=== PATIENT | female | born 1955 | race Caucasian/White ===

== ENCOUNTER 2019-01-21 14:08 | Inpatient (IN) | payer OTHER ==
[~2019-01-21] VITALS: Ht 165.1 cm; Wt 102.2 kg
[~2019-01-21 14:08] MED LIST: ALPR0.25 PO; ASPI-817 PO; FLUT16SP17 NASAL; HYDR12.58 PO; IBUP-1542 PO; LEVO25TA6 PO; LOSA100T15 PO; OMEP20CA17 PO; TRAM50TA PO; [UNRECOGNIZED DRUG - OTHER] PO
[2019-01-21] MEDS ORDERED: ONDANSETRON 4 MG INJ IV STA (18:01)
[2019-01-21] MEDS ORDERED: SOD CHLORIDE 0.9% 1,000 ML IV STA (18:01)
[2019-01-21] MEDS ORDERED: morphine 4 MG/ML VIAL IV STA (18:01)
[2019-01-21] MEDS ORDERED: ACETAMINOPHEN 325 MG TAB PO PRN (19:00)
[2019-01-21] MEDS ORDERED: ONDANSETRON 4 MG INJ IV PRN (19:00)
[2019-01-21] MEDS: DEXTROSE 5%-0.45% NACL 1,000 ML IV SCH (19:12)
[2019-01-21] MEDS ORDERED: morphine 2 MG INJ IV PRN (19:30)
[2019-01-21] MEDS ORDERED: MAGNESIUM HYDROXIDE 30ML CUP PO PRN (19:30)
[2019-01-21] MEDS ORDERED: DOCUSATE SODIUM 100 MG CAP PO PRN (19:30)
[2019-01-21] MEDS ORDERED: HYDROCODONE/APAP (5/325) TAB PO PRN ×2 (19:30)
[2019-01-21] MEDS ORDERED: NACL 0.9% 3 ML SYG IV SCH (19:30)
[2019-01-21] MEDS: FAMOTIDINE 20 MG INJ IV SCH (21:09)
[2019-01-21 23:15] VITALS: BP 141/66; PULSE 60; RESP 18
[2019-01-22] VITALS (15 sets, daily range): BP systolic 103–137; BP diastolic 45–76; PULSE 54–92; RESP 7–31; Ht 165.1 cm; Wt 102.2 kg
[2019-01-22] MEDS: DEXTROSE 5%-0.45% NACL 1,000 ML IV SCH ×2 (03:12→15:12)
[2019-01-22] MEDS: ONDANSETRON 4 MG INJ IV PRN ×2 (06:14→22:47)
[2019-01-22] MEDS ORDERED: LEVOTHYROXINE 25 MCG TAB PO SCH (07:00)
[2019-01-22] MEDS ORDERED: morphine 4 MG/ML VIAL IV PRN (07:30)
[2019-01-22] MEDS ORDERED: PIPER-TAZO 3.375 GM IV (PMX) 100 ML IVPB SCH (09:00)
[2019-01-22] MEDS: LOSARTAN 50 MG TAB PO SCH (09:00)
[2019-01-22] MEDS ORDERED: HYDROCHLOROTHIAZIDE 12.5 MG CAP PO SCH (09:00)
[2019-01-22] MEDS ORDERED: ASPIRIN (EC) 81 MG TAB PO SCH (09:00)
[2019-01-22] MEDS: FAMOTIDINE 20 MG INJ IV SCH ×2 (09:56→20:41)
[2019-01-22] MEDS: FLUTICASONE 0.05% 16 GM NAS SPRAY NASAL SCH (09:57)
[2019-01-22] MEDS: metroNIDAZOLE 500 MG/NS (PMX) 100 ML IVPB SCH ×3 (12:46→22:58)
[2019-01-22] MEDS: LEVOFLOXACIN 500MG/D5W (PMX) 100 ML IVPB SCH (15:19)
[2019-01-22] MEDS ORDERED: LIDOCAINE 1% (MPF) 30 ML INJ ONE (18:16)
[2019-01-22] MEDS ORDERED: BUPIVACAINE 0.5%/EPI (SDV) 30 ML INJ ONE (18:16)
[2019-01-22] MEDS ORDERED: DESFLURANE 15 MIN ONE (18:30)
[2019-01-22] MEDS ORDERED: NEOSTIGMINE 3 MG/3 ML SYRINGE ONE (18:39)
[2019-01-22] MEDS ORDERED: DEXAMETHASONE 4 MG/ML 5 ML INJ ONE (18:39)
[2019-01-22] MEDS ORDERED: PROPOFOL 20 ML ONE (18:39)
[2019-01-22] MEDS ORDERED: MIDAZOLAM 1 MG/ML 2 ML INJ ONE (18:39)
[2019-01-22] MEDS ORDERED: CEFAZOLIN 1 GM INJ ONE (18:39)
[2019-01-22] MEDS ORDERED: ONDANSETRON 4 MG INJ ONE (18:39)
[2019-01-22] MEDS ORDERED: FENTAnyl 50 MCG/ML VIAL ONE ×2 (18:39→19:12)
[2019-01-22] MEDS ORDERED: GLYCOPYRROLATE 0.4 MG INJ ONE (18:39)
[2019-01-22] MEDS ORDERED: ROCURONIUM 50 MG INJ ONE (18:39)
[2019-01-22] MEDS ORDERED: DIPHENHYDRAMINE 50 MG INJ IV PRN (19:00)
[2019-01-22] MEDS ORDERED: ONDANSETRON 4 MG INJ IV PRN ×2 (19:00→19:30)
[2019-01-22] MEDS ORDERED: TRIMETHOBENZAMIDE 100 MG/ML VIAL IM PRN (19:00)
[2019-01-22] MEDS ORDERED: EPHEDrine 25 MG/5 ML SYG IV PRN (19:00)
[2019-01-22] MEDS ORDERED: OXYCODONE/ACETAMINOPHEN (5/325) TAB PO PRN ×2 (19:00)
[2019-01-22] MEDS ORDERED: MIDAZOLAM 1 MG/ML 2 ML INJ IV PRN (19:00)
[2019-01-22] MEDS ORDERED: hydrALAzine 20 MG INJ IV PRN (19:00)
[2019-01-22] MEDS ORDERED: LABETALOL HCL 20MG INJ IV PRN (19:00)
[2019-01-22] MEDS ORDERED: ALBUTEROL 0.083% (NEB) 2.5 MG/3 ML AMP HHN PRN (19:00)
[2019-01-22] MEDS ORDERED: FENTAnyl 50 MCG/ML VIAL IV PRN ×2 (19:00)
[2019-01-22] MEDS ORDERED: IPRATROPIUM (NEB) 0.5 MG/2.5 ML AMP HHN PRN (19:00)
[2019-01-22] MEDS ORDERED: HYDROmorphONE 1 MG/5 ML IV SYRINGE IV PRN ×3 (19:00)
[2019-01-22] MEDS ORDERED: MEPERIDINE 25 MG INJ IV PRN (19:00)
[2019-01-22] MEDS ORDERED: hydrALAzine 20 MG INJ ONE (19:02)
[2019-01-22] MEDS ORDERED: HYDROCODONE/APAP (5/325) TAB PO PRN (19:30)
[2019-01-22] MEDS ORDERED: DIPHENHYDRAMINE 25 MG CAP PO PRN (19:30)
[2019-01-22] MEDS ORDERED: METOCLOPRAMIDE 10 MG INJ IV PRN (19:30)
[2019-01-22] MEDS ORDERED: IBUPROFEN 600 MG TAB PO PRN (19:30)
[2019-01-22] MEDS ORDERED: ACETAMINOPHEN 325 MG TAB PO PRN (19:30)
[2019-01-22] MEDS ORDERED: morphine 2 MG INJ IV PRN (19:30)
[2019-01-22] MEDS ORDERED: KETOROLAC 30 MG INJ IV PRN (19:30)
[2019-01-22] MEDS: FENTAnyl 50 MCG/ML VIAL IV PRN ×2 (19:54→20:01)
[2019-01-22] MEDS: HYDROmorphONE 0.5 MG/0.5 ML SYG IV PRN (22:46)
[2019-01-22] MEDS: D5-NS + KCL 20 MEQ 1,000 ML IV SCH (22:57)
[2019-01-23] MEDS: DEXTROSE 5%-0.45% NACL 1,000 ML IV SCH (01:12)
[2019-01-23 01:51] VITALS: BP 137/62; PULSE 72; RESP 17
[2019-01-23] MEDS: HYDROmorphONE 0.5 MG/0.5 ML SYG IV PRN ×2 (02:58→07:57)
[2019-01-23] MEDS: metroNIDAZOLE 500 MG/NS (PMX) 100 ML IVPB SCH ×2 (04:39→10:07)
[2019-01-23] MEDS: ONDANSETRON 4 MG INJ IV PRN ×2 (04:39→14:28)
[2019-01-23] MEDS: D5-NS + KCL 20 MEQ 1,000 ML IV SCH ×3 (05:00→16:57)
[2019-01-23 07:31] VITALS: BP 107/52; PULSE 57; RESP 18
[2019-01-23] MEDS: FLUTICASONE 0.05% 16 GM NAS SPRAY NASAL SCH (09:00)
[2019-01-23] MEDS: FAMOTIDINE 20 MG INJ IV SCH ×2 (10:00→21:02)
[2019-01-23] MEDS: LOSARTAN 50 MG TAB PO SCH (10:05)
[2019-01-23] MEDS: LEVOFLOXACIN 500MG/D5W (PMX) 100 ML IVPB SCH (11:29)
[2019-01-23 13:57] VITALS: BP 134/64; PULSE 61; RESP 18
[2019-01-23] MEDS: HYDROCODONE/APAP (10/325) TAB PO PRN (14:13)
[2019-01-23 20:50] VITALS: BP 131/53; PULSE 59; RESP 18
[2019-01-23] MEDS ORDERED: LORAZEPAM 2 MG INJ IV ONE (23:00)
[2019-01-24] MEDS: HYDROCODONE/APAP (10/325) TAB PO PRN ×3 (00:07→20:12)
[2019-01-24 03:11] VITALS: BP 106/51; PULSE 53; RESP 18
[2019-01-24] MEDS: D5-NS + KCL 20 MEQ 1,000 ML IV SCH (03:22)
[2019-01-24 07:26] VITALS: BP 149/69; PULSE 67; RESP 18
[2019-01-24] MEDS: LEVOTHYROXINE 25 MCG TAB PO SCH (08:33)
[2019-01-24] MEDS: LOSARTAN 50 MG TAB PO SCH (08:34)
[2019-01-24] MEDS: FAMOTIDINE 20 MG INJ IV SCH ×2 (08:35→20:12)
[2019-01-24] MEDS: FLUTICASONE 0.05% 16 GM NAS SPRAY NASAL SCH (09:00)
[2019-01-24] MEDS ORDERED: KETOROLAC 30 MG INJ IV PRN (12:30)
[2019-01-24] MEDS ORDERED: BISACODYL (EC) 5 MG TAB PO PRN (12:30)
[2019-01-24 14:25] VITALS: BP 130/60; PULSE 62; RESP 17
[2019-01-24 20:00] VITALS: BP 146/64; PULSE 73; RESP 18
[2019-01-24] MEDS: POLYETHYLENE GLYCOL 17 GM PACKET PO SCH (20:12)
[2019-01-25 02:00] VITALS: BP 139/63; PULSE 71; RESP 18
[2019-01-25] MEDS: HYDROCODONE/APAP (10/325) TAB PO PRN (03:35)
[2019-01-25] MEDS: LEVOTHYROXINE 25 MCG TAB PO SCH (06:18)
[2019-01-25 07:26] VITALS: BP 127/59; PULSE 61; RESP 18
[2019-01-25] MEDS: FAMOTIDINE 20 MG INJ IV SCH (08:40)
[2019-01-25] MEDS: LOSARTAN 50 MG TAB PO SCH (08:40)
[2019-01-25] MEDS: POLYETHYLENE GLYCOL 17 GM PACKET PO SCH (08:40)
[2019-01-25] MEDS: FLUTICASONE 0.05% 16 GM NAS SPRAY NASAL SCH (08:43)
== END 2019-01-25 12:15 | disposition home or self-care (01) | DRG 419 ==
LOC: E/R 14:08 → EDSEX 14:08 → MS3 18:35
PROVIDERS: ADMIT Internal Medicine; ATTEND Internal Medicine
PROC: 0FT44ZZ Resection of Gallbladder, Percutaneous Endoscopic Approach (ICD-10-PCS; principal; 2019-01-22 17:00)
DX: K80.01 Calculus of gallbladder with acute cholecystitis with obstruction (principal); I10 Essential (primary) hypertension; E03.9 Hypothyroidism, unspecified; E66.9 Obesity, unspecified; Z68.37 Body mass index [BMI] 37.0-37.9, adult; R73.03 Prediabetes
CPT/HCPCS: 71045; 76705; 78226; 80053; 80061; 81003; 83036; 83690; 83735; 84100; 85025; 88304; 93005; 96374; 96375; A9537; J0360; J0690; J1100; J1170; J1885; J1956; J2250; J2270; J2405; J2710; J2765; J3010; J3480; J7030; J7042